=== PATIENT | male | born 1985 ===

== ENCOUNTER 2020-11-26 16:19 | Inpatient (IN) | payer MEDICAID, OTHER ==
[~2020-11-26] VITALS: Ht 177.8 cm; Wt 106.7 kg
[2020-11-26] MEDS ORDERED: LORazepam 2 MG/ML VIAL IM ONE (17:45)
[2020-11-26] MEDS ORDERED: DiphenhydrAMINE HCL 50 MG/ML VIAL IM ONE (17:45)
[2020-11-26] MEDS ORDERED: HALOPERIDOL LACTATE 5 MG/ML VIAL IM ONE (17:45)
[2020-11-26] MEDS ORDERED: BUPR100SR PO (17:54)
[2020-11-26] MEDS ORDERED: BREX4TAB PO (17:54)
[2020-11-26] MEDS ORDERED: GABA-1181 PO (17:54)
[2020-11-26] MEDS ORDERED: TRAZ-257 PO (17:54)
[2020-11-26] MEDS ORDERED: HYDR-4031 PO (17:54)
[2020-11-26] MEDS ORDERED: LURA60TA PO (17:54)
[2020-11-26 18:41] LABS: BASOPHILS % (AUTO) 0.4 % (0.0-2.0); EOSINOPHILS % (AUTO) 0 % (1.0-6.0); HEMATOCRIT 48.8 % (41-53); HEMOGLOBIN 16.6 g/dL (13.5-17.5); LYMPHOCYTES # (AUTO) 1.6 K/uL (1.0-4.8); LYMPHOCYTES % (AUTO) 15.3 % (22.0-44.0); MEAN CORPUSCULAR HEMOGLOBIN 31.5 pg (26.0-34.0); MEAN CORPUSCULAR HGB CONC 33.9 G/dL (31.0-37.0); MEAN CORPUSCULAR VOLUME 93 fL (80-100); MONOCYTES # (AUTO) 0.7 K/uL (0.1-1.0); MONOCYTES % (AUTO) 6.3 % (2.0-9.0); NEUTROPHILS # (AUTO) 8.3 K/uL (1.8-7.7); PLATELET COUNT (AUTO) 216 K/uL (150-450); RED BLOOD CELL COUNT(AUTO) 5.25 MIL/uL (4.50-5.90); RED CELL DISTRIBUTION WIDTH 12.9 % (11.5-14.5)
[2020-11-26 18:48] LABS: ANION GAP 14 mmol/L (8-16); CALCIUM, TOTAL 9.4 mg/dL (8.8-10.5); CARBON DIOXIDE 24 mmol/L (22-29); CHLORIDE 104 mmol/L (98-107); CREATININE 0.98 mg/dL (0.60-1.30); GLOMERULAR FILTR. RATE CALC > 60 mL/min (>60); GLUCOSE,RANDOM 81 mg/dL (70-110); POTASSIUM 4.1 mmol/L (3.5-5.1); SODIUM SERUM 142 mmol/L (136-145); UREA NITROGEN, BLOOD 13 mg/dL (7-18)
[2020-11-26 18:54] LABS: ALANINE AMINOTRANSFERASE 35 U/L (12-78); ALBUMIN 4.5 g/dL (3.4-5.0); ALKALINE PHOSPHATASE 67 U/L (46-116); ASPARTATE AMINOTRANSFERASE 32 U/L (15-37); BILIRUBIN,TOTAL 1.6 mg/dL (0.1-1.0); TOTAL PROTEIN, SERUM 8.7 g/dL (6.4-8.2)
[2020-11-26 19:04] LABS: COVID AG,FIA SOURCE NASOPHARYNGEAL
[2020-11-26] MEDS ORDERED: HALOPERIDOL 5 MG TABLET PO PRN (20:30)
[2020-11-26 21:37] VITALS: BP 139/88
[2020-11-26] MEDS ORDERED: NICOTINE 21 MG/24 HOUR PATCH TD PRN (22:30)
[2020-11-27] MEDS ORDERED: OMEPRAZOLE 20 MG CAPSULE PO PRN (06:45)
[2020-11-27] MEDS ORDERED: BACITRACIN 28 GM OINTMENT TP PRN (06:45)
[2020-11-27] MEDS ORDERED: DOCUSATE SODIUM 100 MG CAPSULE PO PRN (06:45)
[2020-11-27] MEDS ORDERED: ACETAMINOPHEN 325 MG TABLET PO PRN (06:45)
[2020-11-27] MEDS ORDERED: MAG HYDROX/AL HYDROX/SIMETH ES 30 ML SUSPENSION UDCUP PO PRN (06:45)
[2020-11-27] MEDS ORDERED: ONDANSETRON HCL 4 MG TABLET PO PRN (06:45)
[2020-11-27] MEDS ORDERED: PETROLATUM,WHITE 28 GM JELLY TP PRN (06:45)
[2020-11-27] MEDS ORDERED: ALBUTEROL SULFATE HFA 90 MCG/PUFF 8 GM INHALER IH PRN (06:45)
[2020-11-27] MEDS ORDERED: CloNIDine HCL 0.1 MG TABLET PO PRN (06:45)
[2020-11-27] MEDS ORDERED: IBUPROFEN 600 MG TABLET PO PRN (06:45)
[2020-11-27] MEDS ORDERED: MAGNESIUM HYDROXIDE SUSPENSION 30 ML UDCUP PO PRN (06:45)
[2020-11-27] MEDS ORDERED: LOPERAMIDE HCL 2 MG CAPSULE PO PRN (06:45)
[2020-11-27] MEDS ORDERED: BENZOCAINE/MENTHOL LOZENGE PO PRN (06:45)
[2020-11-27 07:26] LABS: CHOL/HDL RATIO 2.4 (4.2-7.3)
[2020-11-27 16:00] VITALS: BP 102/65
[2020-11-27] MEDS: LURASIDONE HCL 80 MG TABLET PO SCH (20:31)
[2020-11-28 08:00] VITALS: BP 122/81
[2020-11-28 16:32] VITALS: BP 106/68
[2020-11-28] MEDS: ZOLPIDEM TARTRATE 10 MG TABLET PO PRN (20:10)
[2020-11-28] MEDS: LURASIDONE HCL 80 MG TABLET PO SCH (20:10)
[2020-11-29 09:28] VITALS: BP 136/85
[2020-11-29 16:00] VITALS: BP 117/71
[2020-11-29] MEDS: ZOLPIDEM TARTRATE 10 MG TABLET PO PRN (20:03)
[2020-11-29] MEDS: LURASIDONE HCL 80 MG TABLET PO SCH (20:03)
[2020-11-30 08:00] VITALS: BP 130/77
[2020-11-30] MEDS: LORazepam 2 MG TABLET PO PRN (09:28)
[2020-11-30 16:00] VITALS: BP 107/75
[2020-11-30] MEDS: LURASIDONE HCL 80 MG TABLET PO SCH (20:12)
[2020-11-30] MEDS: ZOLPIDEM TARTRATE 10 MG TABLET PO PRN (20:12)
[2020-12-01 08:10] VITALS: BP 135/86
[2020-12-01] MEDS: LORazepam 2 MG TABLET PO PRN (12:19)
[2020-12-01 16:49] VITALS: BP 111/71
[2020-12-01] MEDS: ZOLPIDEM TARTRATE 10 MG TABLET PO PRN (20:50)
[2020-12-01] MEDS: LURASIDONE HCL 80 MG TABLET PO SCH (20:50)
[2020-12-02 08:11] VITALS: BP 104/69
[2020-12-02 09:55] LABS: COVID AG,FIA SOURCE NASOPHARYNGEAL
[2020-12-02] MEDS: LORazepam 2 MG TABLET PO PRN (15:38)
[2020-12-02 16:00] VITALS: BP 105/77
[2020-12-02] MEDS: LURASIDONE HCL 80 MG TABLET PO SCH (20:10)
[2020-12-02] MEDS: ZOLPIDEM TARTRATE 10 MG TABLET PO PRN (20:10)
[2020-12-03 08:10] VITALS: BP 141/72
[2020-12-03] MEDS: LORazepam 2 MG TABLET PO PRN (08:20)
[2020-12-03 16:36] VITALS: BP 123/82
[2020-12-03] MEDS: ZOLPIDEM TARTRATE 10 MG TABLET PO PRN (20:05)
[2020-12-03] MEDS: LURASIDONE HCL 80 MG TABLET PO SCH (20:05)
[2020-12-04 08:26] VITALS: BP 117/76
== END 2020-12-04 15:52 | disposition short-term general hospital (02) | DRG 750 ==
LOC: EMS 16:19 → 3EC 20:00
PROVIDERS: ADMIT Psychiatry & Neurology Psychiatry; ATTEND Psychiatry & Neurology Psychiatry
DX: F25.9 Schizoaffective disorder, unspecified (principal); G47.00 Insomnia, unspecified; F41.9 Anxiety disorder, unspecified; K59.00 Constipation, unspecified; K21.9 Gastro-esophageal reflux disease without esophagitis; F19.10 Other psychoactive substance abuse, uncomplicated; F12.10 Cannabis abuse, uncomplicated; Z87.820 Personal history of traumatic brain injury; F39 Unspecified mood [affective] disorder; F17.210 Nicotine dependence, cigarettes, uncomplicated; R03.0 Elevated blood-pressure reading, without diagnosis of hypertension; Z20.822 Contact with and (suspected) exposure to COVID-19
CPT/HCPCS: 87426; 99291; G0480; J1200; J1630; J2060